=== PATIENT | female | born 1975 | race Caucasian/White ===

== ENCOUNTER 2021-09-17 10:13 | Emergency (ER) | payer MEDICAID ==
--- NOTE | 2021-09-17 11:01 | CR ---
[id number] RAD/RAD Fingers Left EXAM: RAD Fingers Left CLINICAL DATA: TRAUMA COMPARISON: No previous similar exam is available. FINDINGS: No fracture or dislocation is seen. There is no radiopaque foreign body in the soft tissues. There is no air in the soft tissues. There is no cortical thickening or periosteal reaction either. IMPRESSION: NEGATIVE PLAIN FILM EXAM. Alfonso Oconnor MD 09/17/21 1100 Thank you for allowing us to participate in the care of your patient.
--- NOTE | 2021-09-17 19:41 | EDM.PDOC ---
ED HPI GENERAL MEDICAL PROBLEM - General Time Seen by Provider: 09/17/21 11:30 Source of Information: Reports: Patient History Limitations: Reports: No Limitations - History of Present Illness INITIAL COMMENTS - FREE TEXT/NARRATIVE: Pt. presents to ER with complaints of injury to index finger of L hand. Pt. states that the wind caught the door to her car, injuring her finger. Denies any injury elsewhere. Onset: Today Location: Reports: Upper Extremity, Left Quality: Reports: Ache, Throbbing Severity: Moderate - Related Data Allergies Allergy/AdvReac Type Severity Reaction Status Date / Time No Known Allergies Allergy Verified 09/17/21 10:22 ED ROS GENERAL - Review of Systems Review Of Systems: Comprehensive ROS is negative, except as noted in HPI. ED EXAM, GENERAL - Physical Exam Exam: See Below Exam Limited By: No Limitations General Appearance: Alert, WD/WN, No Apparent Distress Extremities: Other (edema noted to L index finger. No obvious deformity noted. CMS intact.) Course - Radiology Interpretation Free Text/Narrative:: radiographs of L index finger negative for acute pathology. Departure - Departure Time of Disposition: 11:30 Disposition: Home, Self-Care 01 Condition: Good Clinical Impression: Finger contusion - Discharge Information Instructions: Contusion Additional Instructions: home to rest. Ice finger for 10-15 min hour Tylenol and ibuprofen for discomfort - Problem List Review Problem List Initiated/Reviewed/Updated: Yes - Assessment/Plan Plan: Pt. will be discharged. Tylenol and ibuprofen for discomfort. Ice finger for 10- 15 min every hour. Follow-up in clinic if having discomfort still in 5-7 days.
== END 2021-09-17 11:10 | disposition home or self-care (01) ==
LOC: VM.ED 10:13
DX: S60.022A Contusion of left index finger without damage to nail, initial encounter (principal); W23.0XXA Caught, crushed, jammed, or pinched between moving objects, initial encounter
CPT/HCPCS: 73140-F1; 99283; 99283-25

== ENCOUNTER 2022-04-22 19:58 | Emergency (ER) | payer MEDICAID | END 2022-04-22 21:35 | disposition home or self-care (01) | LOC: VM.ED 19:58 | DX: S93.401A Sprain of unspecified ligament of right ankle, initial encounter (principal) | CPT/HCPCS: 73610-RT; 99283 ==

== ENCOUNTER 2023-06-10 21:07 | Emergency (ER) | payer SELFPAY ==
[2023-06-10] MEDS ORDERED: Take Home: Ketorolac 10 MG Tab, 4 Tab Pack PO ONE (21:23)
== END 2023-06-10 21:35 | disposition home or self-care (01) ==
LOC: VM.ED 21:07
DX: M25.512 Pain in left shoulder (principal); F17.210 Nicotine dependence, cigarettes, uncomplicated
CPT/HCPCS: 99283; A9270

== ENCOUNTER 2024-02-07 19:53 | Emergency (ER) | payer BC ==
[2024-02-07] MEDS: Take Home: Amoxicillin/Clavulanate K 875-125 MG Tab, 2 Tab Pack PO ONE (20:35)
== END 2024-02-07 20:42 | disposition home or self-care (01) ==
LOC: VM.ED 19:53 → SUPCPDRO 19:53 → VM.ED 20:42
DX: K04.7 Periapical abscess without sinus (principal); Z91.012 Allergy to eggs; Z79.899 Other long term (current) drug therapy
CPT/HCPCS: 99282; A9270

== ENCOUNTER 2024-02-24 06:45 | Emergency (ER) | payer BC | END 2024-02-24 07:55 | disposition home or self-care (01) | LOC: VM.ED 06:45 | DX: S92.511A Displaced fracture of proximal phalanx of right lesser toe(s), initial encounter for closed fracture (principal); E66.9 Obesity, unspecified; Z91.012 Allergy to eggs; Z79.899 Other long term (current) drug therapy; Z90.49 Acquired absence of other specified parts of digestive tract; Z68.36 Body mass index [BMI] 36.0-36.9, adult; W22.8XXA Striking against or struck by other objects, initial encounter; Y93.01 Activity, walking, marching and hiking | CPT/HCPCS: 73660-T9; 99283 ==

== ENCOUNTER 2025-07-01 12:49 | Emergency (ER) | payer BC ==
[2025-07-01 13:10] LABS: BASOPHILS ABSOLUTE AUTO 0.0 x10^3/uL (0.0-0.2); BASOPHILS PERCENT AUTO 0.1 % (0.2-1.2); EOSINOPHILS ABSOLUTE AUTO 0.0 x10^3/uL (0.0-0.5); EOSINOPHILS PERCENT AUTO 0.1 % (0.0-4.0); IMMATURE GRAN ABSOLUTE AUTO 0.03 x10^3/uL (0.00-0.07); IMMATURE GRAN PERCENT AUTO 0.20 % (0.00-0.43); LYMPHOCYTES ABSOLUTE AUTO 0.9 x10^3/uL (1.0-4.8); LYMPHOCYTES PERCENT AUTO 5.1 % (25.0-50.0); MONOCYTES ABSOLUTE AUTO 0.6 x10^3/uL (0.0-0.8); MONOCYTES PERCENT AUTO 3.4 % (2.0-11.0); NEUTROPHILS ABSOLUTE AUTO 16.0 x10^3/uL (1.8-7.7); NEUTROPHILS PERCENT AUTO 91.1 % (50.0-80.0); PLATELET COUNT,PLT 299 x10^3/uL (130-400); RED BLOOD CELL COUNT 5.28 x10^6/uL (4.00-5.50); WHITE BLOOD CELL COUNT,WBC 17.6 x10^3/uL (4.0-10.0)
[2025-07-01] MEDS: Ondansetron 4 MG/2 ML SDV IVPUSH ONE ×2 (13:11→14:45)
[2025-07-01] MEDS: Lactated Ringers 1,000 ML IV ONE (13:13)
[2025-07-01 13:30] LABS: A/G RATIO 0.86; ALANINE AMINOTRANSFERASE,ALT 22 U/L (14-59); ASPARTATE AMNIOTRANSFERASE,AST 14 U/L (15-37); BILIRUBIN TOTAL 0.2 mg/dL (0.2-1.0); BLOOD UREA NITROGEN,BUN 16 mg/dL (7-18); CARBON DIOXIDE,CO2 26 mmol/L (21-32); CHLORIDE,CL 102 mmol/L (98-107); CREATININE 0.9 mg/dL (0.55-1.02); GLUCOSE RANDOM 147 mg/dL (70-99); POTASSIUM,K 3.9 mmol/L (3.5-5.1); PROTEIN TOTAL,TP 8.2 g/dL (6.4-8.2); SODIUM,NA 140 mmol/L (136-145)
[2025-07-01 13:32] LABS: ESTIMATED GFR 79 mL/min (>=60)
[2025-07-01] MEDS: Ketorolac 15 MG/ML SDV IVPUSH ONE (13:47)
[2025-07-01] MEDS: Iopamidol 612 MG/ML 100 ML Bottle IVPUSH ONE ×2 (14:35→14:36)
[2025-07-01 15:19] LABS: APPEARANCE,URINE SLIGHTLY CLOUDY (CLEAR); GLUCOSE,URINE NEGATIVE (NEGATIVE); OCCULT BLOOD,URINE TRACE-INTACT (NEGATIVE)
[2025-07-01 15:27] LABS: SQUAMOUS EPITHELIAL CELLS,UR MANY /HPF (NOT SEEN)
[2025-07-01] MEDS: Promethazine 12.5 MG in Sodium Chloride 0.9% 100 ML IV ONE (15:46)
[2025-07-01] MEDS: Benzocaine 20% Topical Spray UD MUCMEM ONE (16:46)
== END 2025-07-01 17:50 | disposition short-term general hospital (02) ==
LOC: VM.ED 12:49 → SUPCPDRO 12:49 → VM.ED 17:50
DX: K44.9 Diaphragmatic hernia without obstruction or gangrene (principal); K31.1 Adult hypertrophic pyloric stenosis; Z91.012 Allergy to eggs; Z79.51 Long term (current) use of inhaled steroids; Z79.899 Other long term (current) drug therapy; Z90.49 Acquired absence of other specified parts of digestive tract
CPT/HCPCS: 74018; 74177; 80053; 81001; 83605; 83690; 85025; 86140; 96361; 96365; 96374; 96375; 96376; 99285; A9270; J1885; J2270; J2405; J2550; J2765; J7120; Q9967; 36415; 99284